=== PATIENT | female | born 2000 | race Caucasian/White ===

== ENCOUNTER 2024-05-24 11:10 | Emergency (ER) | payer SELFPAY ==
[~2024-05-24] VITALS: Ht 165.1 cm; Wt 75.0 kg
[2024-05-24 11:14] VITALS: BP 112/80; PULSE 90; RESP 18; TEMP 98.4; O2SAT 99
[2024-05-24 14:05] LABS: BASOPHILS % 0.2 % (0.0-2.0); EOSINOPHILS % 0.1 % (0.0-5.0); HEMATOCRIT. 40.7 % (36.0-48.0); HEMOGLOBIN. 13.4 g/dL (12.0-16.0); LYMPHOCYTES % 7.3 % (20.0-50.0); MEAN CORPUSCULAR HEMOGLOBIN 28.7 pg (28.0-32.0); MEAN CORPUSCULAR HGB CONC 32.9 g/dL (31.0-37.0); MEAN CORPUSCULAR VOLUME 87.2 fL (81.0-99.0); MEAN PLATELET VOLUME 7.8 fl (7.4-10.4); MONOCYTES % 5.8 % (2.0-8.0); NEUTROPHILS % 86.6 % (40.0-76.0); PLATELET 374 x1000/uL (130-400); RED BLOOD CELL COUNT 4.67 mill/uL (4.2-5.4); RED CELL DISTRIBUTION WIDTH 14.4 % (11.6-14.6); WHITE BLOOD COUNT 15.2 x1000/uL (4.5-11.0)
[2024-05-24 14:11] LABS: CHLORIDE 98 mEq/L (98-107); POTASSIUM 3.1 mEq/L (3.5-5.1); SODIUM 139 mEq/L (136-145)
[2024-05-24 14:12] LABS: CALCIUM 10.1 mg/dL (8.7-10.4); CARBON DIOXIDE 30 mEq/L (21-32)
[2024-05-24 14:17] LABS: CREATININE 0.7 mg/dL (0.6-1.0); GLUCOSE 95 mg/dL (70-105)
[2024-05-24] MEDS ORDERED: CAPSAICIN 0.075% CREAM 57GM TOP PRN (14:30)
[2024-05-24] MEDS ORDERED: HALOPERIDOL LACTATE 5MG/ML VIAL IM ONE (14:30)
[2024-05-24 14:33] LABS: UREA NITROGEN BLOOD < 5 mg/dL (9-23)
[2024-05-24] MEDS ORDERED: POTASSIUM CHLORIDE 20MEQ/PACKET PO NR (14:45)
[2024-05-24] MEDS: NAPROXEN 375MG TABLET PO ONE (14:45)
[2024-05-24 15:35] LABS: ALANINE AMINOTRANSFERASE 19 IU/L (10-49); ASPARTATE AMINOTRANSFERASE 31 IU/L (<34); BILIRUBIN DIRECT 0.1 mg/dL (<=3.0); BILIRUBIN TOTAL 0.4 mg/dL (0.1-1.0); PROTEIN TOTAL 8.1 g/dL (6.0-8.3)
[2024-05-24 15:37] LABS: HCG SCREEN NEGATIVE
[2024-05-24] MEDS ORDERED: ONDANSETRON 4MG ODT PO NR (17:00)
== END 2024-05-24 17:16 | disposition left against medical advice (07) ==
LOC: ER 11:10
DX: R10.84 Generalized abdominal pain (principal); R11.2 Nausea with vomiting, unspecified; F84.0 Autistic disorder
CPT/HCPCS: 36415; 80048; 80076; 84703; 85025; 99291